=== PATIENT | female | born 1995 | race Caucasian/White ===

== ENCOUNTER 2021-07-17 11:14 | Emergency (ER) | payer MEDICAID ==
[~2021-07-17] VITALS: Ht 167.6 cm; Wt 54.0 kg
[2021-07-17 12:27] VITALS: BP_SYST 113
[2021-07-17 14:40] LABS: BILIRUBIN,URINE NEGATIVE (NEGATIVE); BLOOD, URINE 1+ (NEGATIVE); CLARITY/URINE CLEAR (CLEAR); COLOR,URINE YELLOW (YELLOW); GLUCOSE,URINE NEGATIVE (NEGATIVE); KETONES,URINE NEGATIVE (NEGATIVE); LEUKOCYTE ESTERASE ,URINE NEGATIVE (NEGATIVE); NITRITE, URINE NEGATIVE (NEGATIVE); PROTEIN URINE NEGATIVE (NEGATIVE); UROBILINOGEN,URINE 0.2 (0.2-1.0)
[2021-07-17 14:52] LABS: BACTERIA,URINE FEW /HPF (None Seen); RBC,URINE 0-3 /HPF (0-3); WBC,URINE NONE SEEN /HPF (0-3)
[2021-07-17 14:53] LABS: MUCUS,URINE None Seen /LPF (None Seen)
[2021-07-17 15:53] LABS: BASOPHILS # (AUTO) 0.1 K/uL (0.0-0.2); BASOPHILS % (AUTO) 1.1 % (0.0-2.0); EOSINOPHILS % (AUTO) 0.8 % (0.0-4.0); HEMATOCRIT 35.5 % (36-48); HEMOGLOBIN 11.9 g/dL (12.0-16.0); LYMPHOCYTES # (AUTO) 1.9 K/uL (1.0-5.5); LYMPHOCYTES % (AUTO) 33.4 % (20.5-51.5); MEAN CORPUSCULAR HEMOGLOBIN 31 pg (27-31); MEAN CORPUSCULAR HGB CONC 34 % (32-36); MEAN CORPUSCULAR VOLUME 93 fL (79.0-98.0); MONOCYTES # (AUTO) 0.2 K/uL (0.0-1.0); MONOCYTES % (AUTO) 3.8 % (1.7-9.3); NEUTROPHILS # (AUTO) 3.6 K/uL (1.8-7.7); NEUTROPHILS % (AUTO) 60.9 % (40.0-70.0); PLATELET COUNT (AUTO) 242 K/uL (130-430); RED BLOOD CELL COUNT(AUTO) 3.83 MIL/uL (4.2-6.2); RED CELL DISTRIBUTION WIDTH 12.8 % (9.0-15.0); WHITE BLOOD COUNT (AUTO) 5.8 K/uL (4.8-10.8)
[2021-07-17 15:59] LABS: PROTHROMBIN TIME 10.9 SECS (9.5-12.5)
[2021-07-17 16:02] LABS: ANION GAP 8 (5-15); CALCIUM 9.3 mg/dL (8.4-11.0); CHLORIDE 101 mmol/L (98-107); CREATININE 0.61 mg/dL (0.55-1.30); GLUCOSE 83 mg/dL (70-99); POTASSIUM 3.9 mmol/L (3.5-5.1); SODIUM SERUM 136 mmol/L (136-145); UREA NITROGEN, BLOOD 15 mg/dL (8-21)
[2021-07-17 16:07] LABS: GFR AFRICAN AMERICAN 151 mL/min (>90)
[2021-07-17 16:09] LABS: ALANINE AMINOTRANSFERASE 18 U/L (12-78); ALBUMIN 4.3 g/dL (3.4-4.8); AMYLASE 54 U/L (0-100); ASPARTATE AMINOTRANSFERASE 13 U/L (10-37); LIPASE 99 U/L (73-393); TOTAL BILIRUBIN 0.3 mg/dL (0.0-1.0)
[2021-07-17 16:13] LABS: C-REACTIVE PROTEIN QUANT < 0.2 mg/dL (0-0.5)
[2021-07-17 16:21] LABS: BARBITURATE, URINE NEGATIVE (NEG <=200); BENZODIAZEPINE, URINE NEGATIVE (NEG <=150); CANNABINOID, URINE NEGATIVE (NEG <=50); COCAINE, URINE NEGATIVE (NEG <=150); METHAMPHETAMINES SCREEN,URINE NEGATIVE (NEG <=500); OPIATE, URINE NEGATIVE (NEG <=100); PHENCYCLIDINE SCREEN,URINE NEGATIVE (NEG <=25); UR TRICYCLIC ANTIDEPRESSANTS NEGATIVE (NEG <=300); URINE AMPHETAMINE NEGATIVE (NEG <=500); URINE METHADONE NEGATIVE (NEG <=200); URINE OXYCODONE SCREEN NEGATIVE (NEG <=100); URINE PROPOXYPHENE SCREEN NEGATIVE (NEG <=300)
--- NOTE | 2021-07-17 16:30 | NUR ---
Patient to H2 to gown for evaluation. Side rails up. ASSUMED CARE
--- NOTE | 2021-07-17 16:35 | NUR ---
ER at bedside examining patient.
--- NOTE | 2021-07-17 16:40 | NUR ---
PT PRESENTS TO ED C/O CYANOTIC HANDS W/O ILLNESS. PT HAS NO ACUTE RESP DISTRESS NOTED.VSS.
[2021-07-17 16:57] LABS: ERYTHROCYTE SEDIMENTATION RATE 10 MM/HR (0-20)
[2021-07-17] MEDS ORDERED: IBUP-1969 PO (17:28)
[2021-07-17 17:45] VITALS: BP_SYST 113
--- NOTE | 2021-07-17 17:45 | NUR ---
Patient given written and verbal discharge instructions and verbalizes understanding. ER MD discussed with patient the results and treatment provided. Patient in stable condition. ID arm band removed. Rx of IBUPROFEN given. Patient educated on pain management and to follow up with PMD. Pain Scale 0. Opportunity for questions provided and answered. Medication side effect fact sheet provided.
== END 2021-07-17 17:45 | disposition home or self-care (01) ==
LOC: SED 11:14
DX: R10.2 Pelvic and perineal pain (principal); R42 Dizziness and giddiness; Z79.899 Other long term (current) drug therapy
CPT/HCPCS: 36415; 71045; 76376; 80053; 80307; 81000; 81025; 82150; 82550; 83605; 83690; 84484; 84703; 85025; 85610-TC; 85651-TC; 85730-TC; 86140; 93005; 99285

== ENCOUNTER 2021-09-17 13:19 | Emergency (ER) | payer MEDICAID, SELFPAY ==
[~2021-09-17] VITALS: Ht 167.6 cm; Wt 55.3 kg
[~2021-09-17 13:19] MED LIST: IBUP-1969 PO
[2021-09-17 13:45] VITALS: BP_SYST 96
--- NOTE | 2021-09-17 13:45 | NUR ---
pt. bib staff from treatment center, came in with c/o ESCOTO, cough, body aches, sore throat, N/V
--- NOTE | 2021-09-17 14:07 | NUR ---
ER in tent to exam patient.
[2021-09-17] MEDS ORDERED: KETOROLAC TROMETHAMINE 30 MG VIAL IM ONE (14:15)
--- NOTE | 2021-09-17 14:20 | NUR ---
covid swab performed at bedside and sent to lab
[2021-09-17 16:23] LABS: BILIRUBIN,URINE NEGATIVE (NEGATIVE); COLOR,URINE YELLOW (YELLOW); GLUCOSE,URINE NEGATIVE (NEGATIVE); KETONES,URINE 3+ (NEGATIVE); LEUKOCYTE ESTERASE ,URINE 1+ (NEGATIVE); NITRITE, URINE NEGATIVE (NEGATIVE); PH,URINE 6.5 (5.0-8.0); PROTEIN URINE TRACE (NEGATIVE); UROBILINOGEN,URINE 0.2 (0.2-1.0)
[2021-09-17 16:42] LABS: BLOOD, URINE TRACE (NEGATIVE); CLARITY/URINE HAZY (CLEAR)
[2021-09-17 17:04] LABS: BACTERIA,URINE FEW /HPF (None Seen)
[2021-09-17 17:05] LABS: MUCUS,URINE 2+ /LPF (None Seen)
[2021-09-17] MEDS ORDERED: CEPH-548 PO (17:08)
[2021-09-17] MEDS ORDERED: IBUP-1968 PO (17:08)
[2021-09-17] MEDS ORDERED: cephALEXin 500 MG CAPSULE PO ONE (17:15)
[2021-09-17 17:38] VITALS: BP_SYST 109
--- NOTE | 2021-09-17 17:39 | NUR ---
Patient given written and verbal discharge instructions and verbalizes understanding. ER Dr. Pryor discussed with patient the results and treatment provided. Patient in stable condition. ID arm band removed. Rx of Cephalexin and motrin given. Patient educated on pain management and to follow up with PMD. Pain Scale 2. Opportunity for questions provided and answered. Medication side effect fact sheet provided.
== END 2021-09-17 17:38 | disposition home or self-care (01) ==
LOC: SED 13:19
DX: U07.1 COVID-19 (principal); Z79.899 Other long term (current) drug therapy
CPT/HCPCS: 36415; 81000; 87086; 87426; 96372; 99283; J1885